=== PATIENT | male | born 1950 | race Caucasian/White ===

== ENCOUNTER → 2017-09-28 | Outpatient (CLI) | payer OTHER ==
[~2017-09-28] MED LIST: ASPIR 8181 MG PO; BETA CAROT10000 UNIT PO; CALCIUM MAGNES1 EACH PO; CO Q-10100 MG PO; PROSTATE HEALT1 EAC1 PO; RED YEAST RICE600 MG PO; VITAMIN D1000 UNI1 PO; VITAMINC500 PO; ZYRTEC10 MG PO
== END ==
LOC: RAD 09:42
DX: R05 Cough (principal)

== ENCOUNTER → 2019-05-26 | Outpatient (CLI) | payer OTHER | LOC: CAT 10:25 | DX: Z13.6 Encounter for screening for cardiovascular disorders (principal); E78.00 Pure hypercholesterolemia, unspecified; I25.10 Atherosclerotic heart disease of native coronary artery without angina pectoris ==

== ENCOUNTER 2020-04-15 15:30 | Emergency (ER) | payer OTHER ==
[~2020-04-15] VITALS: Ht 170.2 cm; Wt 72.6 kg
[2020-04-15] MEDS ORDERED: FISH OIL 1,0001 EAC9 PO (15:36)
[2020-04-15 18:43] VITALS: BP 129/75
== END 2020-04-15 18:44 | disposition home or self-care (01) ==
LOC: ER 15:30
DX: S63.275A Dislocation of unspecified interphalangeal joint of left ring finger, initial encounter (principal); Z79.899 Other long term (current) drug therapy; W23.0XXA Caught, crushed, jammed, or pinched between moving objects, initial encounter; Y93.89 Activity, other specified; Y92.89 Other specified places as the place of occurrence of the external cause; Y99.8 Other external cause status

== ENCOUNTER → 2020-05-28 | Outpatient (CLI) | payer OTHER ==
[~2020-05-28] MED LIST changes: +FISH OIL 1,0001 EAC9 PO
== END ==
LOC: CAT 08:38
PROVIDERS: ATTEND Family Medicine
DX: Z13.6 Encounter for screening for cardiovascular disorders (principal); I25.10 Atherosclerotic heart disease of native coronary artery without angina pectoris; E78.00 Pure hypercholesterolemia, unspecified

== ENCOUNTER → 2020-06-07 | Outpatient (CLI) | payer OTHER | LOC: SJCVCIMAG 14:09 | PROVIDERS: ATTEND Internal Medicine Cardiovascular Disease | DX: I07.1 Rheumatic tricuspid insufficiency (principal); E78.5 Hyperlipidemia, unspecified ==

== ENCOUNTER → 2020-11-05 | Outpatient (CLI) | payer OTHER | LOC: CAT 09:31 | PROVIDERS: ATTEND Family Medicine | DX: Z13.6 Encounter for screening for cardiovascular disorders (principal); I25.10 Atherosclerotic heart disease of native coronary artery without angina pectoris; E78.00 Pure hypercholesterolemia, unspecified ==